=== PATIENT | male | born 1970 | race Caucasian/White ===

== ENCOUNTER 2023-07-30 16:52 | Emergency (ER) | payer OTHER ==
[~2023-07-30] VITALS: Ht 182.9 cm; Wt 81.7 kg
[2023-07-30 16:52] VITALS: BP 160/106
[2023-07-30] MEDS ORDERED: Norco 5-325 Ta1 EACH PO (18:23)
== END 2023-07-30 18:33 | disposition home or self-care (01) ==
LOC: ER 16:52
DX: S22.048A Other fracture of fourth thoracic vertebra, initial encounter for closed fracture (principal); S93.401A Sprain of unspecified ligament of right ankle, initial encounter; S20.212A Contusion of left front wall of thorax, initial encounter; V69.40XA Driver of heavy transport vehicle injured in collision with unspecified motor vehicles in traffic accident, initial encounter
CPT/HCPCS: 71046; 72070; 73610; 96372; 99284-25; J1885

== ENCOUNTER → 2024-07-31 | Outpatient (CLI) | payer OTHER ==
[~2024-07-31] MED LIST: Norco 5-325 Ta1 EACH PO
== END ==
LOC: LAB 14:03 → LAB SHORT 14:03
DX: Z98.52 Vasectomy status (principal)

== ENCOUNTER → 2024-10-10 | Outpatient (CLI) | payer OTHER | LOC: LAB 17:34 → LAB SHORT 17:34 | DX: J02.9 Acute pharyngitis, unspecified (principal) | CPT/HCPCS: 87081 ==